=== PATIENT | male | born 1965 | race Caucasian/White ===

== ENCOUNTER 2018-08-14 05:51 | Day surgery (SDC) | payer OTHER ==
[~2018-08-14] VITALS: Ht 182.9 cm; Wt 123.0 kg
[2018-08-14] MEDS ORDERED: BENZOCAINE 20% 50 MCG/SPRAY 57 GM TP ONE (05:52)
[2018-08-14] MEDS ORDERED: ALBUTEROL SULFATE 2.5 MG/0.5 ML NEB SOLUTION NEB ONE (05:52)
[2018-08-14] MEDS ORDERED: LIDOCAINE 4% 50 ML SOLUTION TP ONE (05:52)
[2018-08-14] MEDS ORDERED: LIDOCAINE 2% 30 ML JELLY TP ONE (05:52)
[2018-08-14] MEDS ORDERED: SODIUM CHLORIDE 0.9% 1,000 ML IV ONE ×2 (06:27→06:30)
[2018-08-14] MEDS ORDERED: PRED10 PO (06:50)
[2018-08-14] MEDS ORDERED: ATOR40TA28 PO (06:50)
[2018-08-14] MEDS ORDERED: VALS160T2 PO (06:50)
[2018-08-14] MEDS ORDERED: MONT10TA21 PO (06:50)
[2018-08-14] MEDS ORDERED: MULT1CAP32 PO (06:50)
[2018-08-14] MEDS ORDERED: ESCI10TA PO (06:50)
[2018-08-14] MEDS ORDERED: FAMO20 PO (06:50)
[2018-08-14] MEDS ORDERED: ASPI-1182 PO (06:50)
[2018-08-14] MEDS ORDERED: INSNOV SQ (06:50)
[2018-08-14] MEDS ORDERED: DEXT1DRO OU (06:50)
[2018-08-14] MEDS ORDERED: EMPA25TA PO (06:50)
[2018-08-14] MEDS ORDERED: HYDR25TA PO (06:50)
[2018-08-14] MEDS ORDERED: FLUT16H NASAL (06:50)
[2018-08-14] MEDS ORDERED: GABA-531 PO (06:50)
[2018-08-14] MEDS ORDERED: AMLO-512 PO (06:50)
[2018-08-14] MEDS ORDERED: LATA7.5D OU (06:50)
[2018-08-14] MEDS ORDERED: INSLAN SQ (06:50)
[2018-08-14] MEDS ORDERED: METF-960 PO (06:50)
[2018-08-14] MEDS ORDERED: OMEP20 PO (06:50)
[2018-08-14 07:24] LABS: GLUCOMETER DEV NAME(LOC) SDS 5; GLUCOSE,POINT OF CARE 160 MG/DL (70-110)
[2018-08-14] MEDS ORDERED: MIDAZOLAM HCL 2 MG/2 ML VIAL ONE (07:51)
[2018-08-14] MEDS ORDERED: FentaNYL CITRATE-PF 100 MCG/2 ML VIAL ONE (07:51)
[2018-08-14] MEDS ORDERED: OXYGEN THERAPY IH SCH (08:00)
[2018-08-14] MEDS ORDERED: MethylPREDNISolone SOD SUCC 125 MG/2 ML VIAL IVP ONE (08:00)
[2018-08-14] MEDS ORDERED: MethylPREDNISolone SOD SUCC 125 MG/2 ML VIAL ONE (08:10)
== END 2018-08-14 09:35 | disposition home or self-care (01) ==
LOC: SURGERY 05:51
PROVIDERS: ATTEND Internal Medicine Critical Care Medicine
DX: J38.4 Edema of larynx (principal); B37.0 Candidal stomatitis; J84.111 Idiopathic interstitial pneumonia, not otherwise specified; J98.09 Other diseases of bronchus, not elsewhere classified; J98.8 Other specified respiratory disorders; G47.33 Obstructive sleep apnea (adult) (pediatric); I10 Essential (primary) hypertension; E11.9 Type 2 diabetes mellitus without complications; E78.00 Pure hypercholesterolemia, unspecified; Z79.01 Long term (current) use of anticoagulants; Z72.89 Other problems related to lifestyle; Z79.84 Long term (current) use of oral hypoglycemic drugs; Z79.4 Long term (current) use of insulin; Z79.82 Long term (current) use of aspirin; Z79.891 Long term (current) use of opiate analgesic; Z79.899 Other long term (current) drug therapy
CPT/HCPCS: 31623; 31624; 71045; 82962; 87015; 87070; 87205; 87206; 87220; 88108; 88312; 93005; J2250; J2930; J3010; J7030; 99152

== ENCOUNTER 2019-04-23 07:15 | Day surgery (SDC) | payer OTHER ==
[~2019-04-23] VITALS: Ht 180.3 cm; Wt 117.0 kg
[~2019-04-23 07:15] MED LIST: AMLO10TA7 PO; ASPI-1182 PO; ATOR40TA28 PO; DEXT1DRO OU; EMPA25TA PO; ESCI10TA PO; FAMO20 PO; FLUT16H NASAL; GABA-531 PO; HYDR25TA PO; INSLAN SQ; INSNOV SQ; LATA7.5D OU; METF-960 PO; MONT10TA21 PO; MULT1CAP32 PO; OMEP20 PO; PRED10 PO; SODIUM CHLORIDE 0.9% 1,000 ML IV ONE; VALS160T2 PO
[2019-04-23] MEDS ORDERED: LIDOCAINE 2% 30 ML JELLY TP ONE (07:16)
[2019-04-23] MEDS ORDERED: ALBUTEROL SULFATE 2.5 MG/0.5 ML NEB SOLUTION NEB ONE (07:16)
[2019-04-23] MEDS ORDERED: LIDOCAINE 4% 50 ML SOLUTION TP ONE (07:16)
[2019-04-23] MEDS ORDERED: BENZOCAINE 20% 50 MCG/SPRAY 57 GM TP ONE (07:16)
[2019-04-23] MEDS ORDERED: MIDAZOLAM HCL 2 MG/2 ML VIAL ONE (07:44)
[2019-04-23] MEDS ORDERED: FentaNYL CITRATE-PF 100 MCG/2 ML VIAL ONE (07:44)
[2019-04-23 08:14] LABS: GLUCOMETER DEV NAME(LOC) SDS.; GLUCOSE,POINT OF CARE 160 MG/DL (70-110)
[2019-04-23] MEDS ORDERED: MethylPREDNISolone SOD SUCC 125 MG/2 ML VIAL IVP ONE (09:15)
[2019-04-23] MEDS ORDERED: MethylPREDNISolone SOD SUCC 125 MG/2 ML VIAL ONE (09:18)
[2019-04-23] MEDS ORDERED: OXYGEN THERAPY IH SCH (20:00)
== END 2019-04-23 10:10 | disposition home or self-care (01) ==
LOC: SURGERY 07:15
PROVIDERS: ATTEND Internal Medicine Critical Care Medicine
DX: J38.4 Edema of larynx (principal); B37.0 Candidal stomatitis; E78.00 Pure hypercholesterolemia, unspecified; Z98.890 Other specified postprocedural states
CPT/HCPCS: 31623; 31624; 71045; 82962; 87015; 87070; 87101; 87205; 87206; 87220; 88312; 93005; J2250; J2930; J3010; J7030